=== PATIENT | female | born 1960 | race Hispanic/Latino ===

== ENCOUNTER → 2025-07-08 | Outpatient (CLI) | payer OTHER | END | disposition home or self-care (01) | LOC: RAH 10:50 | PROVIDERS: ATTEND Surgery | DX: Z12.31 Encounter for screening mammogram for malignant neoplasm of breast (principal); C50.411 Malignant neoplasm of upper-outer quadrant of right female breast; R42 Dizziness and giddiness | CPT/HCPCS: 77067 ==